=== PATIENT | male | born 1980 | race Caucasian/White ===

== ENCOUNTER 2017-02-03 03:34 | Emergency (ER) ==
[2017-02-03 03:38] VITALS: BP 122/77
[2017-02-03 05:39] LABS: MANUAL DIFF NEEDED? NO
[2017-02-03 05:40] LABS: BASO% 0.4 % (0.0-0.8); EOS# 0.39 X1000 (0.0-0.7); EOS% 3.5 % (0.0-10.0); HEMOGLOBIN 15.7 g/dL (14.0-18.0); IMM GRAN# 0.02 X1000 (0.0-0.04); IMM GRAN% 0.2 % (0.0-0.5); LYMPH% 21.5 % (20.5-51.1); MCH 32.4 PG (27-31); MCHC 34.9 g/dL (33-37); MCV 92.8 FL (81-99); MONO# 0.92 X1000 (0.11-0.59); MONO% 8.2 % (1.7-9.3); MPV 9.2 FL (7.4-10.4); NEUT% 66.2 % (42.2-75.2); PLT 303 X1000 (130-400); RBC 4.85 XMIL (4.7-6.1)
--- NOTE | 2017-02-03 05:42 | PROVIDER DOCUMENTATION ---
HPI-Abdominal Pain/GI Problem - General Source: patient - History of Present Illness-ABD Nature of Presenting Problems: 5 day illness started in low back with green bowel movements nausea and near vomiting hurts low near bladderno f/c using ibuprofen Abdominal Pain Onset Location: reports: suprapubic Pain Radiation: reports: back Quality of Pain: reports: aching Severity in ED: reports: moderate Onset/Duration: reports: 5 days ago Timing: reports: still present Activities at Onset: reports: none Exposure to sick contacts?: No Modifying Factors: improves with: defecating. worse with: lying down, movement Associated Symptoms: reports: diarrhea, fever/chills, heartburn, joint pain, nausea. denies: vomiting Last BM: this morning Dark Stools Present?: reports: none noticed Rectal Bleeding: reports: none # of Diarrhea Episodes: 5 # of Vomiting Episodes: 0 Bruising or Bleeding Gums?: No Similar Symptoms Previously?: No Recently seen or treated by another doctor?: No <Eddie Chappell - Last Filed: 02/03/17 05:37> <Raoul Lei - Last Filed: 02/03/17 08:14> - General Chief Complaint: Generalized Pain Stated Complaint: BACK PAIN, ABD PAIN, CAGE Time Seen by Provider: 02/03/17 05:31 Allergies/Adverse Reactions: Patient Allergies Allergy/AdvReac Type Severity Reaction Status Date / Time No Known Allergies Allergy Verified 02/03/17 03:38 Home Medications: Home Medication List Medication Instructions Recorded Confirmed Last Taken Type Ciprofloxacin HCl [Cipro] 500 mg PO BID #20 tablet 02/03/17 Unknown Rx Promethazine [Phenergan] 25 mg PO Q6H PRN PRN #10 tablet 02/03/17 Unknown Rx Review of Systems - Adult - REVIEW OF SYSTEMS - ADULT Constitutional: reports: chills, fever, weight loss Eyes: denies: discharge, dry eyes, blurred vision, double vision, eye pain, redness Ears, Nose, Mouth & Throat: denies: ear pain, epistaxis, hoarseness, throat pain Cardiovascular: reports: orthopnea. denies: chest pain, edema, irregular heart rate, palpitations, PND Respiratory: reports: shortness of breath, wheezing. denies: cough Gastrointestinal: reports: see HPI Genitourinary: denies: dysuria, frequency, hematuria, urgency Musculoskeletal: reports: back pain Neurological: reports: headache/migraines Endocrine: reports: no symptoms reported Hematologic/Lymphatic: reports: no symptoms reported. denies: blood clots, easy bruising, low blood count Allergic/Immunologic: denies: allergic reactions, allergic rhinitis, asthma, hay fever <Eddie Chappell - Last Filed: 02/03/17 05:37> Past History - Adult - PAST MEDICAL HISTORY-ADULT Review of Records: reports: Nursing Assessment Review, Medications Reviewed, Social history reviewed & non-contributory. Major Childhood Illnesses: reports: denies history Cardiovascular: reports: denies history Respiratory: reports: denies history Gastrointestinal: reports: denies history, cholelithiasis, diverticulosis, GI bleed, inflammatory bowel disease, pancreatitis Genitourinary: reports: denies history. denies: kidney disease, kidney stones, polycystic kidney disease, prostatitis Musculoskeletal: reports: denies history Neurological: reports: denies history Endocrine/Immune: reports: denies history - PRIOR SURGERIES/PROCEDURES Surgical/Procedure History: reports: orthopedic (extremity) - SOCIAL HISTORY Smoking: cigarettes Substance Use: none/never Alcohol Use Frequency: rarely <Eddie Chappell - Last Filed: 02/03/17 05:37> Physical Exam-General - PHYSICAL EXAM-ADULT Initial Vital Signs Reviewed: Yes - CONSTITUTIONAL General Appearance: appears well, alert, no apparent distress - EYES Eyes: PERRL/EOMI, pink conjunctivae - HEAD, EARS, NOSE, MOUTH & THROAT HENMT: normocephalic/atraumatic, moist mucous membranes, normal ENT inspection - NECK Neck: supple - RESPIRATORY Respiratory: lungs clear - CARDIOVASCULAR Cardiovascular: regular rate, rhythm - GASTROINTESTINAL (ABDOMEN) Abdominal Exam: soft - LYMPHATIC Lymphatic: no adenopathy - MUSCULOSKELETAL Back Exam: no CVA tenderness, no vertebral tenderness Extremity: normal range of motion, non-tender - SKIN Integumentary: normal color, normal turgor - NEUROLOGIC Neurologic: grossly normal - PSYCHIATRIC Psych/Mental Status: oriented x 3 <Eddie Chappell - Last Filed: 02/03/17 05:37> Progress - PLAN OF CARE/RESULTS Progress/Plan/Lab Results: Laboratory Results - last 24 hr 02/03/17 02/03/17 05:25 05:25 WBC 11.16 H RBC 4.85 Hgb 15.7 Hct 45.0 MCV 92.8 MCH 32.4 H MCHC 34.9 RDW Std Deviation 13.2 Plt Count 303 MPV 9.2 Immature Gran % (Auto) 0.2 Neut % (Auto) 66.2 Lymph % (Auto) 21.5 Brooks % (Auto) 8.2 Eos % (Auto) 3.5 Baso % (Auto) 0.4 Immature Gran # (Auto) 0.02 Neut # (Auto) 7.39 H Lymph # (Auto) 2.40 Brooks # (Auto) 0.92 H Eos # (Auto) 0.39 Baso # (Auto) 0.04 Sodium 139 Potassium 3.8 Chloride 104 Carbon Dioxide 24 L Anion Gap 12 BUN 10 Creatinine 0.7 Estimated GFR/1.73 m2 > 60 BUN/Creatinine Ratio 14 Glucose 93 Calculated Osmolality 276 Calcium 9.7 Total Bilirubin 1.00 AST 54 H ALT 85 H Alkaline Phosphatase 71 Total Protein 7.9 Albumin 4.6 Globulin 3.0 Albumin/Globulin Ratio 1.0 Vital Signs Temp Pulse Resp BP Pulse Ox 02/03/17 03:35 97.0 F L 90 20 122/77 100 No Known Allergies Allergy (Verified 02/03/17 03:38) No Home Medications 02/03/17 Laboratory 02/03/17 02/03/17 05:25 05:25 WBC 11.16 H RBC 4.85 Hgb 15.7 Hct 45.0 MCV 92.8 MCH 32.4 H MCHC 34.9 RDW Std Deviation 13.2 Plt Count 303 MPV 9.2 Immature Gran % (Auto) 0.2 Neut % (Auto) 66.2 Lymph % (Auto) 21.5 Brooks % (Auto) 8.2 Eos % (Auto) 3.5 Baso % (Auto) 0.4 Immature Gran # (Auto) 0.02 Neut # (Auto) 7.39 H Lymph # (Auto) 2.40 Brooks # (Auto) 0.92 H Eos # (Auto) 0.39 Baso # (Auto) 0.04 Sodium 139 Potassium 3.8 Chloride 104 Carbon Dioxide 24 L Anion Gap 12 BUN 10 Creatinine 0.7 Estimated GFR/1.73 m2 > 60 BUN/Creatinine Ratio 14 Glucose 93 Calculated Osmolality 276 Calcium 9.7 Total Bilirubin 1.00 AST 54 H ALT 85 H Alkaline Phosphatase 71 Total Protein 7.9 Albumin 4.6 Globulin 3.0 Albumin/Globulin Ratio 1.0 Orders Category Date Time Status Saline Loc NOW Care 02/03/17 06:[address] ABD/PELVIS W/ IV CONT ONLY [CT] Stat Exams 02/03/17 06:30 Ordered flat [FLAT/UPRIGHT ABD/1 VIEW CHEST] [RAD] Stat Exams 02/03/17 05:21 Taken CBC WITH DIFF [HEME] Stat Lab 02/03/17 05:25 Completed COMPREHENSIVE METABOLIC PANEL [CHEM] Stat Lab 02/03/17 05:25 Completed UDS [URINE DRUG SCREEN PL] Stat Lab 02/03/17 06:[address] W/POSS RFLX CULT [URINALYSIS] Stat Lab 02/03/17 05:21 Uncollected 0.9% Sodium Chloride Inj [Ns] 1,000 ml Med 02/03/17 06:30 Active IV 999 mls/hr Ondansetron [Zofran] Med 02/03/17 06:30 Discontinued 4 mg IV NOW ONE - REASSESSMENT Reassessment #1 Time Reassessed: 06:48 Status: unchanged (Tooke over pt's care at 6AM, and pt was examined. Reports still having nausea feeling w/o improvement. IV/IVF/Zofran given and CT A+P orgered due to hsi abd pain and elevated WBC.) - CT/MRI 1 CT Results: CT A+P - mild ileus or enteritis. Normal appendix. No abscess, no hydro. <Raoul Lei X - Last Filed: 02/03/17 08:14> Departure <Eddie Chappell - Last Filed: 02/03/17 05:37> - Departure Time of Disposition Order: 08:12 Certified Medical Emergency: Emergent <Raoul Lei - Last Filed: 02/03/17 08:14> - Departure DIAGNOSIS: Gastroenteritis, Dehydration Food poisoning Qualifiers: Encounter type: initial encounter Injury intent: accidental or unintentional Qualified Code(s): T62.91XA - Toxic effect of unspecified noxious substance eaten as food, accidental (unintentional), initial encounter Disposition: HOME 01 Condition: Stable Additional Instructions: Follow up with regular MD in 2-3 days. Return to ER if your symptoms worsen. Plenty of oral fluids. Prescriptions: Ciprofloxacin HCl [Cipro] 500 mg PO BID #20 tablet Promethazine [Phenergan] 25 mg PO Q6H PRN PRN #10 tablet PRN Reason: Nausea And Vomiting Referrals: None,PCP [Primary Care Provider] - Physician Attestation
[2017-02-03 06:03] LABS: AGAP 12; ALBUMIN 4.6 g/dL (3.5-5.0); ALKALINE PHOSPHATASE 71 U/L (32-122); BUN 10 mg/dL (8-22); CALCIUM 9.7 mg/dL (8.8-10.2); CHLORIDE 104 mmol/L (98-107); COSMO 276; GOT 54 U/L (10-34); GPT 85 U/L (10-44); POTASSIUM 3.8 mmol/L (3.5-5.1); SODIUM 139 mmol/L (136-145); TCO2 24 mmol/L (25-35); TOTAL PROTEIN 7.9 g/dL (6.3-8.3)
[2017-02-03] MEDS ORDERED: NS 1,000 ML IV ONE (06:30)
[2017-02-03] MEDS ORDERED: ZOFRAN IV ONE (06:30)
[2017-02-03] MEDS ORDERED: G.I. COCKTAIL PO ONE (07:03)
[2017-02-03] MEDS ORDERED: PHENERGAN IM ONE (07:03)
--- NOTE | 2017-02-03 07:39 | Diag Imaging Result Document ---
PROCEDURE NAME: FLAT/UPRIGHT ABD/1 VIEW CHEST - 02/03/2017 FLAT AND UPRIGHT WITH CHEST, FOUR VIEWS: FINDINGS: The lungs are well expanded. No pneumonia. No cardiomegaly. No free air beneath the diaphragm. There is stool throughout the colon. There is at least 1 air distended loop of small bowel in the left abdomen. No organomegaly. No abnormal abdominal calcifications. There is a right pelvic calcification believed to be a phlebolith. IMPRESSION: Ileus or partial obstruction.
--- NOTE | 2017-02-03 08:23 | Diag Imaging Result Document ---
PROCEDURE NAME: CT ABD/PELVIS W/ IV CONT ONLY - 02/03/2017 CT ABDOMEN AND PELVIS WITH INTRAVENOUS CONTRAST. DOSE REDUCTION PROTOCOL. COMPARISON: No comparison films. FINDINGS: The lung bases are clear. Normal spleen, pancreas, adrenal glands, and gallbladder. No focal hepatic abnormality. The kidneys are normal. There is a tiny left renal cyst. No hydronephrosis. Normal aorta. Minimal distention to several mid and left small bowel loops. Air and stool is found in the colon. Normal appendix. No abscess. The urinary bladder is distended and appears normal. The prostate is not enlarged. IMPRESSION: 1. Questionable mild ileus or even enteritis. 2. Normal appendix. No abscess. 3. Tiny left renal cyst. A preliminary report was given at 7:57 a.m..
== END 2017-02-03 08:34 | disposition home or self-care (01) ==
LOC: P.ED 03:34
DX: T62.91XA Toxic effect of unspecified noxious substance eaten as food, accidental (unintentional), initial encounter (principal); K52.9 Noninfective gastroenteritis and colitis, unspecified; E86.0 Dehydration; N28.1 Cyst of kidney, acquired; M54.5 Low back pain; R11.0 Nausea; R10.9 Unspecified abdominal pain; R19.7 Diarrhea, unspecified; R50.9 Fever, unspecified; R12 Heartburn; M25.50 Pain in unspecified joint; R06.01 Orthopnea; R06.02 Shortness of breath; R06.2 Wheezing; R63.4 Abnormal weight loss
CPT/HCPCS: 36415; 74022; 74177; 80053; 85025; 96361; 96372; 96374; J2405; J2550; J7030; Q9967